=== PATIENT | female | born 1965 | race Caucasian/White ===

== ENCOUNTER → 2016-11-15 | Day surgery (SDC) | payer OTHER ==
[2016-11-14 14:14] VITALS: BMI 27.3
[~2016-11-15] VITALS: Ht 160 cm; Wt 71.0 kg
[2016-11-15] VITALS (12 sets, daily range): BP systolic 108–130; BP diastolic 64–87; PULSE 60–78; RESP 11–24; Ht 160 cm; Wt 71.0 kg
[~2016-11-15] MED LIST: BEN50 PO; BUPIVACAINE 0.5% (SDV) 30 ML INJ ONE; CEFAZOLIN 1 GM INJ ONE; CEFAZOLIN 2 GM/50 ML (PMX) 50 ML IVPB ONE; DEXAMETHASONE 4 MG/ML 1 ML INJ ONE; DEXTROSE 50% 50 ML SYRINGE IV PRN; DIPH25CA6; EPHEDrine SULFATE 50 MG/5 ML SYG IV PRN; FENTAnyl 50 MCG/ML VIAL ONE; FERR134T PO; GLUCAGON 1 MG INJ IM PRN; GLUCOSE GEL 15 GRAM TUBE BUCCAL PRN; GLUCOSE GEL 15 GRAM TUBE PO PRN; INSULIN ASPART [NOVOLOG] 3 ML PEN SC ONE; KENC1 TOP; KENC25 TOP; LACTATED RINGER'S 1,000 ML IV* SCH; LIDOCAINE 1% (MPF) 10 ML INJ ONE; LIDOCAINE 2% (SDV) 5 ML INJ ONE; METOCLOPRAMIDE 10 MG INJ IV PRN; MIDAZOLAM 1 MG/ML 2 ML INJ ONE; ONDANSETRON 4 MG INJ IV PRN; ONDANSETRON 4 MG INJ ONE; OXYCODONE/ACETAMINOPHEN (5/325) TAB PO PRN; PROCHLORPERAZINE 10 MG INJ IV PRN; PROPOFOL 100 ML ONE; SIMVASTATIN; TRIMETHOBENZAMIDE 100 MG/ML VIAL IM PRN; morphine (1 MG/ML) 10ML SYRINGE IV PRN
--- NOTE | 2016-11-15 16:42 | HPN ---
Date/Time of Note Date/Time of Note DATE: 11/15/16 TIME: 16:42 Interval H&P Admission Note Pt. seen H&P reviewed: No system changes REVA LOMELI Nov 15, 2016 16:42
--- NOTE | 2016-11-15 17:52 | OPR ---
DATE OF OPERATION: 11/15/2016 SURGEON: REVA CHRIS MD. ANESTHESIA: Local MAC. PREOPERATIVE DIAGNOSIS: Right small finger mass. POSTOPERATIVE DIAGNOSIS: Right small finger mass. PROCEDURE: Excision of the deep mass from right small finger measuring 2 cm x 1 cm. OPERATIVE FINDINGS: Right small finger mass at the radial aspect of the middle phalanx adherent to the underlying extensor tendon with the appearance of giant cell tumor tendon sheath. INDICATION FOR PROCEDURE: A 51-year-old female with longstanding mass over the right small finger wh ich was increasing in size. Patient elected for surgical intervention, understanding the risks, ramon efits. DESCRIPTION OF PROCEDURE: The patient was seen in the preoperative area and all further questions w ere answered. Again, she gave informed consent understanding risks and benefits. She was taken to operative suite and placed in supine position. Sedation was administered and right upper extremity was prepped with ChloraPrep stick and draped in the usual sterile fashion. Ancef 2 grams was admini stered and the right small finger was elevated and an Esmarch, tourniquet was placed at the base of the finger secured by a curved hemostat. A mid axial incision was utilized at the radial aspect of the small finger. With sharp dissection, it was carried down through skin and subcutaneous tissue. The mass which deep and adherent to the extensor tendon was left encapsulated and scissor dissectio n around the mass revealed a 2 cm x 1 cm mass adherent to the underlying tendon. Once the mass was identified circumferentially, it was elevated off of the tendon with a small portion of the tendon c oming with it. Visually, the mass was completely excised. Wound was copiously irrigated and skin c losed with 4-0 nylon. The mass was sent for specimen and Xeroform placed over the wound followed by sterile gauze and 1 inch Coban dressing. The patient was awakened from anesthesia and taken to the postoperative suite in stable condition and tolerated procedure well without complication. SPECIMENS: Right small finger mass. ESTIMATED BLOOD LOSS: 5 mL. COUNTS: Sponge, instrument and needle counts correct. TOURNIQUET TIME: 16 minutes. CONDITION ON DISCHARGE: Stable. Dictated By: REVA GARCÍA/DAYAN Conf#: [id number] DID#: [id number]
== END | disposition home or self-care (01) ==
LOC: SDS 14:00
PROVIDERS: ATTEND Orthopaedic Surgery Hand Surgery
DX: D48.1 Neoplasm of uncertain behavior of connective and other soft tissue (principal); E11.9 Type 2 diabetes mellitus without complications; E78.5 Hyperlipidemia, unspecified
CPT/HCPCS: 26160; 82962; 88305; J0690; J1100; J2250; J2405; J3010; Z7512; Z7610; J1815

== ENCOUNTER 2017-04-09 22:48 | Emergency (ER) | payer OTHER ==
[~2017-04-09] VITALS: Ht 160 cm; Wt 73.0 kg
[2017-04-09 22:54] VITALS: Ht 160 cm; Wt 73.0 kg
[2017-04-10] MEDS ORDERED: AMOX500C2 PO (01:06)
[2017-04-10] MEDS ORDERED: ACET500C5 PO (01:07)
--- NOTE | 2017-04-10 01:14 | ERD ---
ER Documentation Chief Complaint Date/Time DATE: 04/10/17 TIME: 01:11 Chief Complaint both ear pain x 3 days HPI Patient is a 52-year-old female with a past medical history of hyperlipidemia and diabetes who presents emergency department as of bilateral ear pain. Patient states her pain started 3 days ago. Patient states the pain is getting worse. Patient reports trying OTC ear relief drops with no alleviation of symptoms. Patient states her right ear pain is worse than left ear pain. Patient reports rhinorrhea mild throat irritation. Patient denies any fevers. Patient denies any nausea, vomiting, chest pain, shortness of breath, abdominal pain. Of note, patient is currently taking Bactrim for UTI. ROS All systems reviewed and are negative except as per history of present illness. Medications Home Meds Active Scripts Acetaminophen* (Tylophen*) 500 Mg Capsule, 1 CAP PO Q6H Y for PAIN AND OR ELEVATED TEMP, #20 CAP Prov:LISA YOUNG-Yulia 04/10/17 Amoxicillin* (Amoxicillin*) 500 Mg Cap, 500 MG PO BID for 10 Days, CAP Prov:LISA YOUNG PA-C 04/10/17 Allergies Allergies: Coded Allergies: No Known Drug Allergies (Verified Allergy, Mild, 11/15/16) PMhx/Soc History of Surgery: No Anesthesia Reaction: No Hx Neurological Disorder: No Hx Respiratory Disorders: No Hx Cardiac Disorders: No Hx Psychiatric Problems: No Hx Miscellaneous Medical Probl: Yes (ANEMIA,DM) Hx Alcohol Use: No Hx Substance Use: No Hx Tobacco Use: No Smoking Status: Never smoker Physical Exam Vitals Vital Signs Date Time Temp Pulse Resp B/P Pulse Ox O2 Delivery O2 Flow Rate FiO2 04/09/17 22:54 98.3 74 20 126/72 98 Physical Exam GENERAL: Well-developed, well-nourished female. Appears in no acute distress. HEAD: Normocephalic, atraumatic. EYES: Pupils are equally reactive bilaterally. EOMs grossly intact. No conjunctival erythema. ENT: External ear without any masses or tenderness. TM visualized bilaterally. Right tympanic membrane appears erythematous and bulging. Left tympanic membrane appears slightly erythematous. Nontender to palpation of bilateral mastoid processes. Nasal mucosa pink with no discharge. Turbinates normal. Oropharynx is pink without any tonsillar erythema or exudates.Sinuses non- tender to palpation. NECK: Supple. No meningismus. Normal range of motion of the neck. LUNG: Clear to auscultation bilaterally. No rhonchi, wheezing, rales or coarse breath sounds. HEART: Regular rate and rhythm. No murmurs, rubs or gallops. EXTREMITIES: Equal pulses bilaterally. No peripheral clubbing, cyanosis or edema. No unilateral leg swelling. NEUROLOGIC: Alert and oriented. Moving all four extremities without any difficulty. Normal speech. Steady gait. SKIN: Normal color. Warm and dry. No rashes or lesions. Procedures/MDM MEDICAL DECISION MAKING: This is a 52-year-old female who presents with bilateral ear pain, rhinorrhea and mild throat irritation. Vital signs were reviewed. Patient was afebrile. Patient was not hypoxic. Ear exam findings were consistent with acute otitis media. I have a much lower clinical suspicion for tympanic membrane perforation , mastoiditis, otic barotrauma, TMJ dysfunction, cerumen impaction, meningitis, strep pharyngitis. PRESCRIPTIONS: Amoxicillin, Tylenol DISCHARGE: At this time, patient is stable for discharge and outpatient management. I have instructed the patient to follow-up with his/her primary care physician in 1-2 days. I have discussed with the patient the possibility of needing to see a specialist for further workup and diagnostic studies if the pain persists. I have instructed the patient to promptly return to the ER at any time for any new or worsening symptoms including increased pain, fever, swelling, discharge or hearing loss. The patient and/or family expressed understanding of and agreement with this plan. All questions were answered. Home care instructions were provided. Disclaimer: Inadvertent spelling and grammatical errors are likely due to EHR/ dictation software use and do not reflect on the overall quality of patient care. Also, please note that the electronic time recorded on this note does not necessarily reflect the actual time of the patient encounter. Departure Diagnosis: Primary Impression: Acute otitis media Otitis media type: unspecified Laterality: unspecified laterality Qualified Code: H66.90 - Acute otitis media, unspecified laterality, unspecified otitis media type Condition: Stable Patient Instructions: Otitis Media, Abx Tx (Adult) Referrals: [facility] YOU HAVE RECEIVED A MEDICAL SCREENING EXAM AND THE RESULTS INDICATE THAT YOU DO NOT HAVE A CONDITION THAT REQUIRES URGENT TREATMENT IN THE EMERGENCY DEPARTMENT. FURTHER EVALUATION AND TREATMENT OF YOUR CONDITION CAN WAIT UNTIL YOU ARE SEEN IN YOUR DOCTORS OFFICE WITHIN THE NEXT 1-2 DAYS. IT IS YOUR RESPONSIBILITY TO MAKE AN APPOINTMENT FOR FOLOW-UP CARE. IF YOU HAVE A PRIMARY DOCTOR --you should call your primary doctor and schedule an appointment IF YOU DO NOT HAVE A PRIMARY DOCTOR YOU CAN CALL OUR PHYSICIAN REFERRAL HOTLINE AT IF YOU CAN NOT AFFORD TO SEE A PHYSICIAN YOU CAN CHOSE FROM THE FOLLOWING [facility] [address] [facility] [address] [facility] [address] [facility] [address] [facility] [address] [facility] [facility] [address] [facility] [facility] YOU HAVE RECEIVED A MEDICAL SCREENING EXAM AND THE RESULTS INDICATE THAT YOU DO NOT HAVE A CONDITION THAT REQUIRES URGENT TREATMENT IN THE EMERGENCY DEPARTMENT. FURTHER EVALUATION AND TREATMENT OF YOUR CONDITION CAN WAIT UNTIL YOU ARE SEEN IN YOUR DOCTORS OFFICE WITHIN THE NEXT 1-2 DAYS. IT IS YOUR RESPONSIBILITY TO MAKE AN APPOINTMENT FOR FOLOW-UP CARE. IF YOU HAVE A PRIMARY DOCTOR --you should call your primary doctor and schedule and appointment IF YOU DO NOT HAVE A PRIMARY DOCTOR YOU CAN CALL OUR PHYSICIAN REFERRAL HOTLINE AT . IF YOU CAN NOT AFFORD TO SEE A PHYSICIAN YOU CAN CHOSE FROM THE FOLLOWING [facility]: [facility] [address] [place] [address] [facility] [address] [place] [address] [facility] [address] [place] [address] Additional Instructions: Call your primary care doctor TOMORROW for an appointment during the next 1-2 days.See the doctor sooner or return here if your condition worsens before your appointment time. LISA YOUNG PA-C Apr 10, 2017 01:14
[2017-04-10 01:25] VITALS: BP 121/72; PULSE 72; RESP 18; TEMP 98
== END 2017-04-10 01:25 | disposition home or self-care (01) ==
LOC: FTE 22:48
DX: H66.93 Otitis media, unspecified, bilateral (principal); E11.9 Type 2 diabetes mellitus without complications
CPT/HCPCS: 99283

== ENCOUNTER 2018-03-08 21:59 | Emergency (ER) | END 2018-03-09 01:02 | disposition home or self-care (01) ==

== ENCOUNTER 2018-06-25 10:23 | Emergency (ER) | END 2018-06-25 13:57 | disposition home or self-care (01) ==